=== PATIENT | male | born 1975 | race Caucasian/White ===

== ENCOUNTER 2018-04-25 09:36 | Day surgery (SDC) | payer BC ==
[~2018-04-25 09:36] MED LIST: ACETAMINOPHEN 1,000 MG/100 ML BTL IV ONE
[2018-04-25] MEDS ORDERED: LIDOCAINE 2% MDV (20MG/ML) 20ML VIAL IV ONE (09:37)
[2018-04-25] MEDS ORDERED: SEVOFLURANE 250 ML INH ONE (09:37)
[2018-04-25] MEDS ORDERED: MIDAZOLAM HCL 2MG/2ML VIAL IV ONE (09:37)
[2018-04-25] MEDS ORDERED: DEXAMETHASONE 4 MG/ML 1ML VIAL IVP ONE (09:37)
[2018-04-25] MEDS ORDERED: BUPIVACAINE 0.25% W/EPI MPF 30ML VIAL IVP ONE (09:37)
[2018-04-25] MEDS ORDERED: KETOROLAC 30 MG/ML VIAL IVP ONE (09:37)
[2018-04-25] MEDS ORDERED: FENTANYL PF 100MCG/2ML VIAL IV ONE (09:37)
[2018-04-25] MEDS ORDERED: PROPOFOL 10 MG/ML VIAL IV ONE (09:37)
--- NOTE | 2018-04-26 00:20 | Operative Note ---
DATE OF SURGERY: 04/25/2018 SURGEON: SABRINA GALLARDO D.O. REFERRING PHYSICIAN: BELA SOUTH M.D. PREOPERATIVE DIAGNOSES: 1. TORN MEDIAL MENISCUS OF THE LEFT KNEE. 2. CHONDROMALACIA OF THE LEFT KNEE. POSTOPERATIVE DIAGNOSES: 1. TORN MEDIAL MENISCUS OF THE LEFT KNEE. 2. CHONDROMALACIA OF THE PATELLA LEFT KNEE. OPERATIVE PROCEDURE: 1. ARTHROSCOPIC PARTIAL MEDIAL MENISCECTOMY LEFT KNEE. 2. ARTHROSCOPIC CHONDROPLASTY OF THE PATELLA LEFT KNEE. DESCRIPTION: This 42-year-old male was taken to the Operating Room and placed in the supine position on the operating room table, where general anesthesia was induced. The left lower extremity was elevated. It was exsanguinated and the tourniquet inflated to 300 mmHg. Arthroscopic knee noonan applied. Left knee prepped with Hibiclens and draped in the usual sterile fashion. An inferior lateral portal was established with a 4 mm arthroscope and initial evaluation of the joint demonstrated normal appearance of the suprapatellar pouch but grade 2 chondromalacia of the median ridge of the patella was present and chondroplasty was performed to stabilize the articular cartilage there. The medial and lateral gutters were examined and found to be normal. The trochlea was also normal. We then directed our attention to the medial compartment and a complex tear of the medial meniscus was present with the apex being at approximately the 11 o' clock position but it did extend all the way to the most medial aspect of the posterior horn. Utilizing the basket forceps and rotating shaver, we resected back to the apex of the tear and then tapered it in each direction to have a stable smooth contoured surface. The medial femoral condyle and tibial plateau appeared to be essentially normal. The intercondylar notch was examined and found to be normal. The lateral compartment was entered. Probing the lateral meniscus and articular cartilage, the lateral compartment did not demonstrate any pathology. The joint was copiously irrigated and suctioned. All areas were reexamined. No additional findings were present. The instruments were removed. Sterile dressings were applied, tourniquet and knee noonan released, and the patient taken to the Recovery Room in satisfactory condition. GROSS PATHOLOGY: This patient demonstrated a complex tear of the posterior horn of the medial meniscus with mild chondromalacia of the patella being evident. JOB NUMBER: [id number] [facility]
== END 2018-04-25 13:35 | disposition home or self-care (01) ==
LOC: SUR 09:36
PROVIDERS: ATTEND Orthopaedic Surgery
DX: S83.232A Complex tear of medial meniscus, current injury, left knee, initial encounter (principal); M22.42 Chondromalacia patellae, left knee; M19.90 Unspecified osteoarthritis, unspecified site
CPT/HCPCS: 29881; 01400; J1885; J3010